=== PATIENT | male | born 2005 | race Caucasian/White ===

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

== ENCOUNTER 2024-12-27 13:08 | Emergency (ER) | payer SELFPAY ==
[2024-12-27 13:12] VITALS: BP 138/67; PULSE 67; RESP 16; TEMP 37; O2SAT 95; BMI 31.6
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
[2024-12-27 13:25] VITALS: RESP 18; O2SAT 96
[2024-12-27] MEDS: bacitracin ointment Pkt 3 EACH TOPICAL (13:25)
[2024-12-27] MEDS: ondansetron 2 mg/ML SDV 2 mL 4 MG IVP (13:25)
[2024-12-27] MEDS: morphine 4 mg/mL SDV 1 mL IVP (13:25)
[2024-12-27 14:41] VITALS: BP 133/68; PULSE 70; O2SAT 98
[2024-12-27 15:19] VITALS: BP 127/59; PULSE 84; O2SAT 97
== END 2024-12-27 15:22 | disposition home or self-care (01) ==
PROVIDERS: Emergency Provider Registered Nurse
DX: S02.2XXA Fracture of nasal bones, initial encounter for closed fracture (principal); S40.812A Abrasion of left upper arm, initial encounter; S40.811A Abrasion of right upper arm, initial encounter; S80.812A Abrasion, left lower leg, initial encounter; S80.811A Abrasion, right lower leg, initial encounter; S00.81XA Abrasion of other part of head, initial encounter; V28.09XA Other motorcycle driver injured in noncollision transport accident in nontraffic accident, initial encounter
CPT/HCPCS: 36415; 70450; 70486; 72125; 96374; 96375; 99285; J2270; J2405; J9999